=== PATIENT | male | born 1995 | race African-American/Black ===

== ENCOUNTER 2019-04-26 18:40 | Emergency (ER) | payer OTHER ==
[2019-04-26] MEDS ORDERED: HYDROcod/ACETAM 5/325 MG TABLET PO STA (19:31)
[2019-04-26] MEDS ORDERED: IBUPROFEN 800 MG TABLET PO STA (19:31)
--- NOTE | 2019-04-26 19:32 | ED Physician Documentation ---
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 He was playing basketball today and twisted wrong and his knee popped. He has significant posterior knee pain and is unable to walk. No other injuries. No problems with that knee previously.) Review of Systems Constitutional: reports: Reviewed and negative Cardiac: reports: Reviewed and negative Respiratory: reports: Reviewed and negative PD PAST MEDICAL HISTORY - Past Medical History Past Medical History: No - Past Surgical History Past Surgical History: Yes - Present Medications Home Medications: Ambulatory Orders Medication Instructions Recorded Confirmed Oxycodone HCl/Acetaminophen 1 - 2 each PO Q6H PRN #14 tablet 04/26/19 [Percocet 5-325 mg Tablet] - Allergies Allergies/Adverse Reactions: Allergies Allergy/AdvReac Type Severity Reaction Status Date / Time No Known Drug Allergies Allergy Verified 04/26/19 19:02 - Social History Does the pt smoke?: Yes Smoking Status: Current every day smoker Does the pt drink ETOH?: Yes Does the pt have substance abuse?: No - Immunizations Immunizations are current?: Yes - POLST Patient has POLST: No PD ED PE NORMAL - Vitals Vital signs reviewed: Yes - General General: Alert and oriented X 3, No acute distress - Extremities Extremities: Other (Right knee has a small effusion. No anterior bony tenderness. There is some potential mild laxity with both ACL and PCL testing. MCL and LCL are tight. Negative grind testing.) - Neuro Neuro: Alert and oriented X 3, Normal speech Results - Vitals Vitals: Vital Signs - 24 hr 04/26/19 04/26/19 19:00 21:02 Temperature 36.1 C L 36.8 C Heart Rate 69 60 Respiratory 19 16 Rate Blood Pressure 116/63 133/69 H O2 Saturation 99 99 Oxygen O2 Source Room air - Rads (name of study) 4v R knee Radiology: EMP read contemporaneously (normal) PD MEDICAL DECISION MAKING - ED course ED course: 23-year-old gentleman with a basketball related injury, examination is concerning for potentially a PCL injury, he is placed in a knee immbolizer, x- rays were negative[place] Departure - Departure Disposition: 01 Home, Self Care Clinical Impression: Internal derangement of right knee Condition: Good Record reviewed to determine appropriate education?: Yes Instructions: ED Knee Injury Cruciate Ligament Prescriptions: Oxycodone HCl/Acetaminophen [Percocet 5-325 mg Tablet] 1 - 2 each PO Q6H PRN #14 tablet PRN Reason: pain Comments: Keep the knee immobilizer on when you are up and around, you do not need to wear it in bed. [place]. Return for new or worsening symptoms. Do not drink or drive while taking narcotic pain medication. Note that many narcotic pain relievers also contain Tylenol/acetaminophen. Please ensure that your total dose of acetaminophen from all sources does not exceed 3 g (3000 mg) per day. You may get constipated while on this medication. Take a stool softener such as Colace twice a day while you are on it. Also add an bthm-kew-xaqvzko laxative such as senna or MiraLAX on any day that you do not have a bowel movement. If you received a narcotic pain medication or sedative while in the emergency department, do not drive for the next 24 hours. Your blood pressure was elevated today on check into the emergency department. This does not mean that you have hypertension, it is a common phenomenon to come to the emergency department and have elevated blood pressure. I recommend that you see your primary care physician within the week to have it rechecked when you are feeling better. Forms: Activity restrictions Discharge Date/Time: 04/26/19 21:14
[2019-04-26] MEDS ORDERED: oxyCODONE 5 MG TABLET PO STA (20:26)
--- NOTE | 2019-04-26 20:49 | XRAY Report ---
Reason: knee inj Procedure Date: 04/26/2019 Accession Number: [id number] / [id number] Procedure: XR - Knee 4 View RT CPT Code: FULL RESULT: EXAM: RIGHT KNEE RADIOGRAPHY EXAM DATE: 04/26/2019 08:14 PM. CLINICAL HISTORY: Twisting injury playing basketball. Pain. COMPARISON: None. TECHNIQUE: 4 views. FINDINGS: Bones: Normal. No fractures or bone lesions. Joints: Normal. No effusion. No subluxations. Soft Tissues: Unremarkable. IMPRESSION: Normal knee radiography. RADIA
[2019-04-26] MEDS ORDERED: oxyCODONE/ACET 5/325 Prepack 4 PO STA (20:55)
[2019-04-26 21:06] VITALS: BP 133/69
== END 2019-04-26 21:14 | disposition home or self-care (01) ==
LOC: ED 18:40
DX: S89.91XA Unspecified injury of right lower leg, initial encounter (principal); X50.1XXA Overexertion from prolonged static or awkward postures, initial encounter; Y93.67 Activity, basketball; F17.200 Nicotine dependence, unspecified, uncomplicated; R03.0 Elevated blood-pressure reading, without diagnosis of hypertension
CPT/HCPCS: 73564; 99283; A9270

== ENCOUNTER 2019-05-10 09:40 | Outpatient (CLI) | payer OTHER ==
--- NOTE | 2019-05-10 11:39 | MRI Report ---
Reason: PAIN IN RIGHT KNEE Procedure Date: 05/10/2019 Accession Number: [id number] / [id number] Procedure: MRI - Knee RT W/O CPT Code: FULL RESULT: EXAM: RIGHT KNEE MRI WITHOUT CONTRAST EXAM DATE: 05/10/2019 10:41 AM. CLINICAL HISTORY: Pain in right knee. COMPARISON: None. TECHNIQUE: Multiplanar, multisequence T1-weighted and fluid-sensitive sequences of the knee without contrast. Other: None. FINDINGS: Bones: Marrow edema is seen at the posterior aspect of the medial lateral tibial plateau. There is also marrow edema at the lateral terminal sulcus of the lateral femoral condyle. Articular Cartilage: Unremarkable. Medial Meniscus: Vertically oriented far peripheral tear of the posterior horn of the medial meniscus. Series 701 image 8. No displaced fragment. Lateral Meniscus: Complex tear in the midportion of the lateral meniscus with partial subluxation of the lateral meniscus out of the joint. Cruciate Ligaments: PCL is normal. Acute ACL tear. Series 801 on image 16, series 501 on image 20. Collateral Ligaments: Fibular collateral is bowed laterally, otherwise intact. MCL also shows a small amount of surrounding increased T2 signal. Tendons: The quadriceps, patellar, semimembranosus, and popliteus tendons are unremarkable. Musculature: No edema or fatty atrophy. Other: Moderate-sized joint effusion. Small popliteal cyst. Some debris is seen dependently. The medial and lateral retinacula are intact. Some subcutaneous edema seen over the anterolateral aspect of the knee. IMPRESSION: 1. Acute ACL tear with associated "pivot-shift" bone bruising at the lateral tibial plateau and lateral terminal sulcus of the lateral femoral condyle. 2. Vertically oriented far peripheral tear of the posterior horn of the medial meniscus. No displaced fragment. 3. Complex tear in the midportion of the lateral meniscus with partial subluxation of the joint. There is mild lateral bowing of the fibular collateral. MCL is normal. Remainder of the LCL also normal. 4. Moderate joint effusion. Small popliteal cyst. Debris is seen dependently. Some soft tissue swelling seen anterior laterally. RADIA
== END 2019-05-10 09:41 | disposition home or self-care (01) ==
LOC: DI 09:40
DX: S83.511A Sprain of anterior cruciate ligament of right knee, initial encounter (principal); S83.221A Peripheral tear of medial meniscus, current injury, right knee, initial encounter; S83.271A Complex tear of lateral meniscus, current injury, right knee, initial encounter; M25.461 Effusion, right knee; M71.21 Synovial cyst of popliteal space [Baker], right knee; S80.11XA Contusion of right lower leg, initial encounter; S70.11XA Contusion of right thigh, initial encounter

== ENCOUNTER 2019-06-14 07:53 | Day surgery (SDC) | payer OTHER ==
[2019-06-14] MEDS ORDERED: LACTATED RINGERS 1,000 ML IV ONE ×2 (08:08→16:54)
--- NOTE | 2019-06-14 08:47 | ANESTHESIA ---
Pre-Anesthesia VS, & Labs - Diagnosis R knee ACL and meniscus tears - Procedure R knee ACL reconstruction/meniscus repair vs. debridement Vital Signs: Temp Pulse Resp BP Pulse Ox 36.1 C L 75 16 110/64 98 06/14/19 08:08 06/14/19 08:08 06/14/19 08:08 06/14/19 08:08 06/14/19 08:08 Height 6 ft 1 in Weight (kg) 86.18 kg Body Mass Index 25.7 - NPO >8 hours Home Medications and Allergies Home Medications: Ambulatory Orders Ibuprofen [Motrin] 600 mg PO Q6H PRN 06/13/19 Ibuprofen [Motrin] 600 mg PO Q6H PRN 06/13/19 Allergies/Adverse Reactions: Allergies Allergy/AdvReac Type Severity Reaction Status Date / Time oxycodone [From Percocet] AdvReac Itching Verified 06/14/19 08:23 Anes History & Medical History - Anesthetic History Anesthesia Complications: reports: No previous complications (no prior surgery) Family history of Anesthesia Complications: Denies Family history of Malignant Hyperthermia: Denies - Medical History Cardiovascular: reports: None Pulmonary: reports: None Gastrointestinal: reports: None Urinary: reports: None Musculoskeletal: reports: Other (R ACL tear) Endocrine/Autoimmune: reports: None Skin: reports: None Smoking Status: Current every day smoker Psychosocial: reports: No issues indicated Exam General: Alert, Oriented x3, Cooperative Dental: WNL Mouth Opening: Greater than 4 Fingerbreadths Neck Mobility: Normal Mallampati classification: I Thyromental Distance: greater than 6 cm Respiratory: Lungs clear, Normal breath sounds, No respiratory distress, No accessory muscle use Cardiovascular: Regular rate Neurological: Normal speech Mental/Cognitive Status: Alert/Oriented X3, Normal for patient Cognitive Status: Within normal limits Plan Anesthesia Type: General, Femoral Block (possible post-op) Consent for Procedure(s) Verified and Reviewed: Yes Code Status: Attempt Resuscitation ASA classification: 2-Mild systemic disease Is this case an emergency?: No
[2019-06-14] MEDS ORDERED: CEFAZOLIN SODIUM IN 0.9 % NACL 2 GM/100 ML BAG IV ONE (08:56)
[2019-06-14] MEDS ORDERED: EPINEPHrine 1 MG/ML AMP ONE (09:48)
[2019-06-14] MEDS ORDERED: DEXAMETHASONE 4 MG/ML VIAL IVP ONE (10:29)
[2019-06-14] MEDS ORDERED: ACETAMINOPHEN 1,000 MG/100 ML 100 ML IV ONE (10:29)
[2019-06-14] MEDS ORDERED: PROPOFOL 200 MG/20 ML VIAL IVP ONE (10:29)
[2019-06-14] MEDS ORDERED: MIDAZOLAM 2 MG/2 ML VIAL IVP ONE (10:29)
[2019-06-14] MEDS ORDERED: fentaNYL 250 MCG/5 ML VIAL IVP ONE (10:29)
[2019-06-14] MEDS: BUPIVACAINE 0.25% PF 30 ML VIAL ONE ×3 (11:11→14:15)
[2019-06-14] MEDS ORDERED: KETOROLAC 30 MG/ML VIAL IVP ONE (11:45)
[2019-06-14] MEDS ORDERED: fentaNYL 100 MCG/2 ML VIAL IVP ONE (11:45)
[2019-06-14] MEDS ORDERED: ONDANSETRON 4 MG/2 ML VIAL IVP ONE (11:45)
[2019-06-14] MEDS ORDERED: ONDANSETRON 4 MG/2 ML VIAL IVP PRN (14:31)
[2019-06-14] MEDS ORDERED: HYDROmorphone 2 MG TABLET PO PRN (14:32)
[2019-06-14] MEDS: HYDROmorphone 1 MG/ML CARPUJECT ONE ×2 (14:48→14:55)
--- NOTE | 2019-06-14 15:00 | OPERATIVE REPORT ---
Operative Report - General Procedure Date: 06/14/19 - Procedure Note Estimated Blood Loss (mL): 50 - Other Other Information/Narrative: Date of Procedure: 14 June 2019 Planned Procedure: Right arthroscopic assisted ACL reconstruction with hamstring autograft, meniscal repair versus debridement Pre-op diagnosis: Right ACL tear, medial and lateral meniscal tears Procedure performed: Right arthroscopic assisted ACL reconstruction with hamstring autograft, medial meniscal repair, lateral meniscal debridement Post-op diagnosis: Right ACL tear, posterior peripheral medial meniscal tear, large complex lateral meniscal tear into the root Primary Surgeon: CANDI WEATHERS Secondary Surgeon: [PARAG STOCKTON] Anesthesia: General/LMA EBL: 50ml Tourniquet: Approximately 120 minutes, right thigh. Implants: Meniscus: Arthrex meniscal cinch2 x 2 Femur: Arthrex tight rope RT Tibia: Arthrex 8mm graftbolt Examination Under Anesthesia: ROM approximately 0 degrees extension to 125 degrees of flexion Stable dial at 30 & 90 degrees. Stable to varus and valgus stressing at 0 & 30 degrees. IIB Christy. Positive Pivot shift. Some mechanical sensation Diagnostic Arthroscopy: No loose bodies. Synovium: normal-appearing. Patella cartilage: normal-appearing. Trochlear cartilage: mild grooving. Medial femoral condyle cartilage: normal-appearing with some scattered Outerbridge grade 2 and 3 changes near the notch. Medial tibial plateau cartilage: normal-appearing. Medial meniscus: peripheral posterior vertical tear. Near the junction of the posterior horn and body. This was repaired with 2 Arthrex meniscal cinch2 im plants ACL: torn, there is a large portion of it scarred back posteriorly and medially to the PCL, as well as a remnant stump that had scarred to the tibial plateau, these were debrided. PCL: was intact. Lateral femoral condyle cartilage: generally Outerbridge grade 0, with some scattered areas of grade 1 and 2 changes throughout the weightbearing surface. Lateral tibial plateau cartilage: normal appearing. Lateral meniscus: there was a large complex tear of the posterior portion of the lateral meniscus extending from the meniscal root to approximately mid body. It appeared to of started out as a bucket-handle tear which tore, forming large parrot-beak fragments. There is a large horizontal component to it as well, with an intact inferior rim all the way posterior to the meniscal femoral ligament. The upper leaflet had been displaced posteriorly and was scarred in to the popliteal hiatus and popliteus. These large meniscal flap were mobilized and debrided from the underlying normal structures. Following debridement, there was a rim of intact meniscus circumferentially to the insertion on the meniscal femoral ligament. There was no meniscus left to contact the prior root footprint, and it was not felt that the remnant could be adequately mobilized and repaired to the root. Indications For Surgery: 23-year-old wgsiq-qasp-eix[place]adl male who sustained a noncontact pivoting injury while playing basketball in late April. He was initially evaluated in the ED, with concerns for a possible cruciate ligament unspecified injury, and then by primary care where an MRI was obtained. MRI demonstrated a right ACL tear with medial and lateral meniscal tears, and the patient was referred to orthopedics at his initial eval. In late May, the patient had been in a knee immobilizer for approximately 4 weeks and had poor range of motion approximately 15 to 70 degrees with significant pain with all motion and so he was referred to physical therapy for several weeks up rehab. Following up rehab his range of motion and pain had improved significantly. We discussed treatment options for ACL and meniscal injuries to include nonoperative and operative treatment, with the risks benefits and potential sequelae of each. We discussed the minute the menisci may or may not be repairable, we discussed that his injured knee regardless of treatment would be more likely to develop post traumatic arthritis in the future. He expressed understanding. He desired to proceed with surgery consisting of right ACL reconstruction with hamstring autograft, and meniscal repair versus debridement as appropriate. Risks include pain, bleeding, infection, damage to nearby structures and cartilage, lack of symptom relief, need for further surgery, DVT, PE, stroke, and . Written consent was obtained. Procedure in Detail: The patient was met in the pre-operative hold area on the day of the procedure. The operative extremity was signed and questions were answered. The patient was brought to the operating room and a general anesthetic was administered. Supine position was used and bony prominences were padded. An examination under anesthesia was performed. Standard prepping and draping was performed. A time out confirmed patient identification, laterality, procedure, allergies, antibiotics, and images. Hamstring Graft [place]: A 4 cm incision was made over the insertion of the pes anserine. Hemostasis was obtained with electrocautery. Dissection was brought down to the sartorial fascia and this was cleared off with a sponge. A partial thickness incision was made in the sartorial fascia 5mm proximal to and in line with the gracilis tendon, taking care to not disrupt the superficial medial collateral ligament. A full thickness longitudinal incision was made down to bone, releasing the pes anserine. I then identified the interval between the hamstring tendons and the medial collateral ligament. This interval was exploited and the hamstrings were viewed on the underside of the sartorial fascia. A right angle clamp was used to separate the gracilis tendon from the sartorial fascia and it was released sharply with a knife. I then whip stitched the tendon using a fiber loop. I then freed the tendon from all fascial attachments back to the hiatus. The procedure was repeated for the semitendinosis tendon. A closed tendon stripper was then used to harvest the tendons and they were brought to the back table. The graft was then prepped on the back table. The final graft diameter was a tight 8 mm. An Esmarch bandage was then used to exsanguinate the extremity and the tourniquet was raised to 250 mmHg. A standard diagnostic arthroscopy of the knee was performed through anterolateral and anteromedial portal sites. The anteromedial portal was created under direct visualization after localizing with a spinal needle. The findings can be found above. I then proceeded to debride the lateral meniscus as above, using a combination of meniscal biters, and the sucker shaver. Following debridement, there was a remove intact meniscal tissue which traversed from approximately mid body all the way posterior to the insertion on the meniscal femoral ligament. We then turned our attention to preparing the notch. I then used a sucker shaver and a radiofrequency ablation wand to release all residual ACL tissue off of the lateral wall. I debrided all excess tissue from the notch. I placed the camera into the anteromedial portal and ensured that I was cleared all the way to the back wall. I then brought the flip cutter aiming device through the lateral portal. I positioned into the central position of the [place] ACL footprint on the femur ensuring to leave a 2 mm back wall and stay off of the distal articular cartilage. Once satisfied with the position, the bullet was brought down to the skin and a jenny was made. A 3 cm longitudinal skin incision was made and the IT band was split in line with its fibers. A chey rake was used to retract the IT band and the bullet was brought down to the lateral femoral wall. A flip cutter was then drilled into the notch. It was then flipped and the lateral wall was scored confirming an appropriate position. The bullet was then malleted into place and a 8mm x 25mm femoral tunnel was drilled. Bony debris was removed with a shaver. A fiberstick suture was brought into the joint, retrieved out the lateral portal, and clamped to itself. I then identified the ACL footprint on the tibia and set the tibial guide at 55. I aimed to have the guide pin come out 7 mm anterior to the PCL and in line with the posterior borders of the anterior horn of the lateral meniscus, on the lateral border of the medial tibial spine. The guidewire was then brought into the joint. The knee was then straightened to confirm that it would not impinge on the notch. The guidewire was clamped with a Evelin. The skin was then protected and the tibial tunnel was drilled with the 8mm reamer. The fiberwire was then brought through the tibial tunnel. The graft was then loaded onto the tightrope and the graft was marked at 25 mm. The graft was then passed and the button was brought out of the skin over the lateral femur. I then guided the button back down beneath the IT band and visualized it on the lateral femoral cortex. I then held tension on the graft and advanced it by pulling on the white tightrope sutures. The marking on the graft disappeared into the femoral tunnel and seated nicely. The knee was then cycled 20 times with tension on the graft. I then placed a bump under the distal femur and pulled on the graft ( all 4 limbs ) and use the graft bolt dilator starting with 7 mm and dilating up to 8 mm. The outer sleeve of the graft bolt was then placed while maintaining tension on the graft limbs and a posterior drawer on the proximal tibia. An 8 mm graft bolt was placed inside the sleeve with good fixation. A Christy was performed and was 1A. The scope was reinserted in the knee and there was no prominent hardware. The tension on the graft was appropriate. There was no notch impingement. The tightrope was checked by retightening, followed by 3 alternating half hitches for backup fixation. The excess limbs of suture were then trimmed. All wounds were copiously irrigated with normal saline and we began our closure. The IT band was closed with 0 Vicryl suture. Subcutaneous tissues were closed with 2-0 Vicryl. Skin was closed with a running buried 3-0 Monocryl. 30 mL's of quarter percent Marcaine plain was injected into the manny-incisional soft tissues. The wounds were then cleaned and dried, and covered with Xeroform. Sterile cotton gauze was placed over the incisions followed an ABD and DANIELE stocking. The surgical drapes were removed. The ROM brace was placed and was locked out in full extension. He was awakened and transferred to the recovery room. Postoperative plan: 1. Discharge home from the same day surgery facility once discharge criteria has been met. 2. NWB, knee locked in extension until follow-up. 3. Will follow postoperative ACL rehabilitation protocol with modification for meniscal repair. Anticipate in-line running activities at 4-5 months postop, cutting and pivoting activities at 6 months postop. 4. Return to clinic next week for wound check. 5. Full strength aspirin 28 days for DVT prophylaxis.
[2019-06-14] MEDS ORDERED: HYDROmorphone 0.5 MG/0.5 ML SYRINGE ONE ×2 (15:18→15:42)
[2019-06-14] MEDS ORDERED: HYDROmorphone 1 MG/ML CARPUJECT IVP ONE (15:52)
[2019-06-14] MEDS ORDERED: HYDROmorphone 2 MG TABLET ONE (16:25)
[2019-06-14 17:41] VITALS: BP 122/83
== END 2019-06-14 07:54 | disposition home or self-care (01) ==
LOC: SDS 07:53
PROVIDERS: ATTEND Orthopaedic Surgery
PROC: 0LBL0ZZ Excision of Right Upper Leg Tendon, Open Approach (ICD-10-PCS; 2019-06-14)
PROC: 0SBC4ZZ Excision of Right Knee Joint, Percutaneous Endoscopic Approach (ICD-10-PCS; 2019-06-14)
PROC: 0SQC4ZZ Repair Right Knee Joint, Percutaneous Endoscopic Approach (ICD-10-PCS; 2019-06-14)
PROC: 0MRN47Z Replacement of Right Knee Bursa and Ligament with Autologous Tissue Substitute, Percutaneous Endoscopic Approach (ICD-10-PCS; principal; 2019-06-14 09:30)
DX: S83.511A Sprain of anterior cruciate ligament of right knee, initial encounter (principal); S83.271A Complex tear of lateral meniscus, current injury, right knee, initial encounter; S83.221A Peripheral tear of medial meniscus, current injury, right knee, initial encounter; F17.210 Nicotine dependence, cigarettes, uncomplicated; Z87.09 Personal history of other diseases of the respiratory system
CPT/HCPCS: 29881; 29882; 29888; A9270; C1713; J0131; J0690; J1170; J3010; J7120

== ENCOUNTER 2020-02-26 06:41 | Emergency (ER) | payer OTHER ==
--- NOTE | 2020-02-26 07:07 | ED Physician Documentation ---
PD HPI LOWER EXT INJURY - Stated complaint Stated Complaint: L ANKLE INJ - Chief complaint Chief Complaint: Trauma Ext - History obtained from History obtained from: Patient - History of Present Illness PD HPI LOW EXT INJURY LOCATION: Left, Ankle Type of injury: Other (He states he was doing physical therapy and did some jumps of a good height and then had a pain and popping feeling of his left ankle when he landed from the jump. It was just a couple of feet in height. He was undergoing rehab for a recent right knee injury. He has had pain and swelling ankle.) Where injury occurred: Other (physical therapy) Timing - onset: How many days ago (4) Timing - duration: Days (4) Timing - details: Abrupt onset, Still present (with bruising and swelling over past few days) Associated symptoms: Swelling, Discolored (bruising both sides lower ankles). No: Weakness, Numbness Similar symptoms before: Has not had sx before Recently seen: Clinic Review of Systems Skin: denies: Abrasion (s), Laceration (s) Neurologic: denies: Focal weakness, Numbness PD PAST MEDICAL HISTORY - Past Medical History Cardiovascular: None Respiratory: None Endocrine/Autoimmune: None GI: None : None HEENT: None Psych: None Musculoskeletal: Other Derm: None - Past Surgical History Past Surgical History: Yes - Present Medications Home Medications: Ambulatory Orders Medication Instructions Recorded Confirmed Ibuprofen [Motrin] 600 mg PO Q6H PRN 06/13/19 06/14/19 Ibuprofen [Motrin] 600 mg PO TID PRN #25 tab 02/26/20 - Allergies Allergies/Adverse Reactions: Allergies Allergy/AdvReac Type Severity Reaction Status Date / Time oxycodone [From Percocet] AdvReac Itching Verified 02/26/20 06:50 - Social History Does the pt smoke?: Yes Smoking Status: Current every day smoker Does the pt drink ETOH?: Yes Does the pt have substance abuse?: No - Immunizations Immunizations are current?: Yes - POLST Patient has POLST: No PD ED PE NORMAL - Vitals Vital signs reviewed: Yes - General General: Alert and oriented X 3, No acute distress, Well developed/nourished - Derm Derm: Normal color, Warm and dry - Extremities Extremities: Other (The left ankle shows swelling along the lateral malleolus and a little bit tenderness along the medial deltoid area. The Achilles is firm and nontender. There is some mild effusion diffusely in the ankle. Bruising both lateral and medial) - Neuro Neuro: Alert and oriented X 3, No motor deficit, No sensory deficit Results - Vitals Vitals: Vital Signs - 24 hr 02/26/20 02/26/20 06:48 07:26 Temperature 36.8 C Heart Rate 88 58 L Respiratory 18 16 Rate Blood Pressure 138/87 H 149/92 H O2 Saturation 98 97 Oxygen O2 Source Room air - Rads (name of study) left ankle Radiology: Prelim report reviewed, See rad report (no fractures) PD MEDICAL DECISION MAKING - ED course Complexity details: reviewed results (Presume a moderate ankle sprain with some bruising and swelling. That would suggest some tearing of soft tissue. No fractures seen. The ankle brace he has is good but will not fit into his regulation boots so he was given a work note to have regular shoes with the brace and limited standing walki), considered differential, d/w patient Departure - Departure Disposition: 01 Home, Self Care Clinical Impression: Left ankle sprain Qualifiers: Encounter type: initial encounter Involved ligament of ankle: unspecified ligament Qualified Code(s): S93.402A - Sprain of unspecified ligament of left ankle, initial encounter Condition: Stable Record reviewed to determine appropriate education?: Yes Instructions: ED Sprain Ankle W X Ray [facility]] Prescriptions: Ibuprofen [Motrin] 600 mg PO TID PRN #25 tab PRN Reason: Pain Comments: Wear the ankle supporter that you have when up and around for another 1 to 2 weeks. I wrote a note for duty to allow regular shoes to allow you to wear the brace. No running jumping or prolonged standing over the next week as well. Use some anti-inflammatories ibuprofen 2-3 times a day for the next week. Follow-up with your primary care regarding further treatment. There is no fracture seen on the x-ray. However the bruising of the base of the ankle would suggest a mid grade sprain with some partial tearing of ligaments or muscles. This can take 2-3 weeks for healing. Forms: Activity restrictions Discharge Date/Time: 02/26/20 07:56
[2020-02-26] MEDS ORDERED: IBUPROFEN 600 MG TABLET PO STA (07:19)
[2020-02-26 07:28] VITALS: BP 149/92
--- NOTE | 2020-02-26 08:24 | XRAY Report ---
PROCEDURE: Ankle 3 View LT INDICATIONS: ankle injury while jumping a week ago TECHNIQUE: 3 views of the ankle were acquired. COMPARISON: None FINDINGS: Bones: No fractures or dislocations. Slight widening of lateral ankle mortise is seen concerning for low-grade distal syndesmotic injury. No suspicious bony lesions. Soft tissues: No tibiotalar joint effusion. Achilles tendon appears normal. Mild lateral ankle sof t tissue swelling is seen. IMPRESSION: 1. No acute ankle fracture or dislocation. 2. Mild lateral ankle soft tissue swelling with slight widening of distal tibial-fibular syndesmosis concerning for low-grade distal syndesmotic injury. Reviewed by: Vasile Rojo MD on 02/26/2020 8:22 AM PDT Approved by: Vasile Rojo MD on 02/26/2020 8:22 AM PDT Station ID: [id number]
== END 2020-02-26 07:56 | disposition home or self-care (01) ==
LOC: ED 06:41
DX: S93.402A Sprain of unspecified ligament of left ankle, initial encounter (principal); S90.02XA Contusion of left ankle, initial encounter; X50.1XXA Overexertion from prolonged static or awkward postures, initial encounter; Y93.B9 Activity, other involving muscle strengthening exercises; F17.200 Nicotine dependence, unspecified, uncomplicated
CPT/HCPCS: 73610; 99283; A9270